=== PATIENT | female | born 2000 | race Caucasian/White ===

== ENCOUNTER 2023-02-15 19:35 | Emergency (ER) | payer BC ==
[2023-02-15] MEDS ORDERED: DIPH,PERTUS(ACELL)TETVAC-LF 0.5 ML VIAL IM ONE (20:08)
--- NOTE | 2023-02-15 20:33 | CT ---
EXAMINATION TYPE: CT brain cspine wo con CT DLP: 1252.7 mGycm, Automated exposure control for dose reduction was used. DATE OF EXAM: 02/15/2023 8:21 PM COMPARISON: None. CLINICAL INDICATION:Female, 22 years old with history of Trauma; pain after fall and hit head TECHNIQUE: Brain: Multiple axial CT images of the brain were obtained without IV contrast. Cspine: Axial CT images from the skull base to the inferior aspect of T2 we obtained without intraven ous contrast. Coronal and sagittal reformatted images were also reviewed. FINDINGS: Brain: Extra-axial spaces: No abnormal extra-axial fluid collections. Ventricular system: Within normal limits Cerebral parenchyma: No acute intraparenchymal hemorrhage or mass effect. The suazo-white junction is well differentiated. Cerebellum: Unremarkable. Mass effect: No evidence of midline shift. Intracranial vasculature: unremarkable Soft tissues: Normal. Calvarium/osseous structures: No depressed skull fracture. Paranasal sinuses and mastoid air cells: Clear. Visualized orbits: Orbital contents are intact. Cervical spine: Fracture: None. Osseous structures: Unremarkable Vertebral alignment: Within normal limits. Spinal canal/Neural Foramina: No evidence of significant spinal canal narrowing. No evidence for sign ificant neural foraminal stenosis. Neck soft tissues: Prevertebral soft tissues are within normal limits. Other: The airway is patent. The lung apices are clear. IMPRESSION: 1. No acute intracranial process. 2. No evidence of cervical spine fracture.
--- NOTE | 2023-02-15 20:38 | ED ---
General Adult HPI - General Chief complaint: Head Injury Stated complaint: Fall-hit head-not on blood thinners Time Seen by Provider: 02/15/23 19:55 Source: patient, family, RN notes reviewed, old records reviewed Mode of arrival: ambulatory Limitations: no limitations - History of Present Illness Initial comments: This is a 22-year-old female presents emergency department stating that she had a few drinks this evening and lost her balance and fell and hit her head on the left side of her head. Patient states he was just a slight amount of bleeding just inside the hairline on the left side. Patient states her jaws a little bit tender as well however she is able to open her mouth fully and close and her teeth aligned perfectly. Patient has some right-sided neck pain patient has no spinous process tenderness at all. Patient denies any pain with movement of the neck except for the right side. Patient denies any numbness or weakness. Patie nt denies any other injury. Patient is chest pain back pain or abdominal pain. - Related Data Allergies Allergy/AdvReac Type Severity Reaction Status Date / Time nickel Allergy Rash/Hives Verified 02/15/23 19:49 Review of Systems ROS Statement: Those systems with pertinent positive or pertinent negative responses have been documented in the HPI. ROS Other: All systems not noted in ROS Statement are negative. Past Medical History Additional Past Medical History / Comment(s): anemia History of Any Multi-Drug Resistant Organisms: None Reported Past Surgical History: No Surgical Hx Reported Past Psychological History: Anxiety, Depression Smoking Status: Current every day smoker Past Alcohol Use History: Occasional Past Drug Use History: None Reported General Exam - General Exam Comments Initial Comments: GENERAL: Patient is well-developed and well-nourished. Patient is nontoxic and well- hydrated and is in mild distress. Patient does appear a little intoxicated. ENT: Neck is soft and supple. No significant lymphadenopathy is noted. Oropharynx is clear. Moist mucous membranes. Neck has full range of motion without eliciting any pain. Patient has full range of motion of her jaw and her teeth aligned perfectly. Patient does have a little soreness at the TMJ area. EYES: The sclera were anicteric and conjunctiva were pink and moist. Extraocular movements were intact and pupils were equal round and reactive to light. Eyelids were unremarkable. PULMONARY: Unlabored respirations. Good breath sounds bilaterally. No audible rales rhonchi or wheezing was noted. CARDIOVASCULAR: There is a regular rate and rhythm without any murmurs gallops or rubs. ABDOMEN: Soft and nontender with normal bowel sounds. SKIN: Patient has a small 0.25 cm laceration on her scalp on the left it is a approximated NEUROLOGIC: Patient is alert and oriented x3. Cranial nerves II through XII are grossly intact. Motor and sensory are also intact. Normal speech, volume and content. Symmetrical smile. MUSCULOSKELETAL: Normal extremities with adequate strength and full range of motion. LYMPHATICS: No significant lymphadenopathy is noted PSYCHIATRIC: Normal psychiatric evaluation. Limitations: no limitations Course Vital Signs 02/15/23 02/15/23 19:46 20:59 Temperature 98 F 98.4 F Pulse Rate 126 H 90 Respiratory 18 16 Rate Blood Pressure 153/106 106/71 O2 Sat by Pulse 98 98 Oximetry Medical Decision Making - Medical Decision Making Was pt. sent in by a medical professional or institution (, PA, STAPLING MACHINE OPERATOR, urgent care, hospital, or [facility]...) When possible be specific @ -No Did you speak to anyone other than the patient for history (EMS, parent, family, police, friend...)? What history was obtained from this source @ -No Did you review nursing and triage notes (agree or disagree)? Why? @ -I reviewed and agree with nursing and triage notes Were old charts reviewed (outside hosp., previous admission, EMS record, old EKG, old radiological studies, urgent care reports/EKG's, [facility] records)? Report findings @ -No old charts were reviewed Differential Diagnosis (chest pain, altered mental status, abdominal pain women, abdominal pain men, vaginal bleeding, weakness, fever, dyspnea, syncope, headache, dizziness, GI bleed, back pain, seizure, CVA, palpatations, mental health, musculoskeletal)? @ -Cervical spine injury, intracranial hemorrhage, subdural, epidural, intraparenchymal hemorrhage, scalp contusion, scalp laceration, cervical strain EKG interpreted by me (3pts min.). @ -As above X-rays interpreted by me (1pt min.). @ -None done CT interpreted by me (1pt min.). @ -CT of the brain and C-spine showed no acute abnormality. U/S interpreted by me (1pt. min.). @ -None done What testing was considered but not performed or refused? (CT, X-rays, U/S, labs)? Why? @ -None What meds were considered but not given or refused? Why? @ -None Did you discuss the management of the patient with other professionals (professionals i.e. , PA, STAPLING MACHINE OPERATOR, lab, RT, psych nurse, social insurance administrator, eye physician, t eacher, protection officer, behavioral health case manager)? Give summary @ -No Was smoking cessation discussed for >3mins.? @ -No Was critical care preformed (if so, how long)? @ -No Were there social determinants of health that impacted care today? How? (Homelessness, low income, unemployed, alcoholism, drug addiction, transportation, low edu. Level, literacy, decrease access to med. care, fdc, rehab)? @ -No Was there de-escalation of care discussed even if they declined (Discuss DNR or withdrawal of care, Hospice)? DNR status @ -No What co-morbidities impacted this encounter? (DM, HTN, Smoking, COPD, CAD, Cancer, CVA, ARF, Chemo, Hep., AIDS, mental health diagnosis, sleep apnea, morbid obesity)? @ -None Was patient admitted / discharged? Hospital course, mention meds given and ro madi, prescriptions, significant lab abnormalities, going to OR and other pertinent info. @ -Patient did not need a tetanus shot because she was area today. Patient's CAT scan showed no acute abnormality. Lacerations are well approximated and it was 1.25 cm in length. Undiagnosed new problem with uncertain prognosis? @ -No Drug Therapy requiring intensive monitoring for toxicity (Heparin, Nitro, Insulin, Cardizem)? @ -No Were any procedures done? @ -No Diagnosis/symptom? @ -Head injury Acute, or Chronic, or Acute on Chronic? @ -Acute Uncomplicated (without systemic symptoms) or Complicated (systemic symptoms)? @ -Complicated Side effects of treatment? @ -No Exacerbation, Progression, or Severe Exacerbation? @ -No Poses a threat to life or bodily function? How? (Chest pain, [place], [place], pneumonia, PE, COPD, DKA, ARF, appy, cholecystitis, CVA, Diverticulitis, Homicidal, Suicidal, threat to staff... and all critical care pts) @ -No - Lab Data Lab Results 09/04/23 Range/Units 20:03 Urine HCG, Qual Not Detected (Not Detectd) Disposition Clinical Impression: Closed head injury, Scalp laceration Disposition: HOME SELF-CARE Instructions (If sedation given, give patient instructions): Concussion (ED) Is patient prescribed a controlled substance at d/c from ED?: No Referrals: None,Stated [Primary Care Provider] - 1-2 days Time of Disposition: 20:38
[2023-02-15] MEDS ORDERED: ACETAMINOPHEN TAB 500 MG TAB PO STA (20:40)
[2023-02-15 21:03] VITALS: BP 106/71; PULSE 90; RESP 16; TEMP 98.4
== END 2023-02-15 21:02 | disposition home or self-care (01) ==
LOC: EC 19:35
DX: S01.01XA Laceration without foreign body of scalp, initial encounter (principal); F17.200 Nicotine dependence, unspecified, uncomplicated; Z86.59 Personal history of other mental and behavioral disorders; Z88.6 Allergy status to analgesic agent; W18.30XA Fall on same level, unspecified, initial encounter
CPT/HCPCS: 12001; 70450; 72125; 81025; 99284